=== PATIENT | male | born 1935 | race Caucasian/White ===

== ENCOUNTER → 2017-12-29 | Outpatient (CLI) | payer MEDICARE, OTHER ==
[~2017-12-29] MED LIST: ACETAMINOPHEN325 M1 PO; ACTONEL PO; ASACOL HD800 MG PO; ASPIRIN EC81 M1 PO; ASPIRIN325 PO; BACTRIM DS TAB1 EACH PO; CALCIUM 600 +1 EA11 PO; CALCIUM 600 +1 EAC5; CENTRUM TABLET1 EACH; CYMBALTA30 MG PO; DIFLUCAN150 MG PO; FUROSEMIDE 40 M40 M1 PO; IMURAN 50MG TAB50 M1 PO; KLOR-CON 10 ER10 MEQ PO; KLOR-CON 1010 MEQ PO; LASIX 20 MG TAB20 MG PO; LISINOPRIL2.5 MG; LISINOPRIL2.5 MG PO; MECLIZINE HCL25 M1 PO; NITROGLYCERIN0.4 MG SUBLING; OMEPRAZOLE20 M2 PO; PRILOSEC 20 MG20 MG PO; PROZAC 10 MG CA10 M1; PROZAC 10 MG CA10 MG PO; SIMCOR 500-401 EACH; SIMVASTATIN40 MG PO; TOPROL XL25 MG PO; ZOCOR40 MG PO
[2017-12-29 14:58] LABS: ALBUMIN 3.5 g/dL (3.4-5.0); ALKALINE PHOSPHATASE 56 U/L (46-116); CHOLESTEROL 111 mg/dL (<200); DIRECT BILIRUBIN 0.2 mg/dL (<0.1-0.3); HDL CHOLESTEROL 36 mg/dL (>40); LDL CHOLESTEROL 60 mg/dL (<100); SGOT 18 U/L (15-37); SGPT 18 U/L (30-65); TC:HDL 3.1 Ratio (Not establshd); TOTAL BILIRUBIN 0.6 mg/dL (<0.1-1.0); TOTAL PROTEIN 6.7 g/dL (6.4-8.2); TRIGLYCERIDE 76 mg/dL (<150); VLDL 15 mg/dL (<40)
[2017-12-29 14:59] LABS: SERUM ASSESSMENT Clear
== END ==
LOC: M.LAB 14:20
PROVIDERS: Internal Medicine
DX: E78.2 Mixed hyperlipidemia (principal); I25.10 Atherosclerotic heart disease of native coronary artery without angina pectoris

== ENCOUNTER → 2018-05-19 | Outpatient (CLI) | payer MEDICARE, OTHER | LOC: M.LAB 04:45 | DX: Z01.812 Encounter for preprocedural laboratory examination (principal); E78.2 Mixed hyperlipidemia; I25.10 Atherosclerotic heart disease of native coronary artery without angina pectoris ==

== ENCOUNTER 2018-09-14 13:42 | Emergency (ER) | payer MEDICARE, OTHER ==
[~2018-09-14] VITALS: Ht 172.7 cm; Wt 81.7 kg
[2018-09-14 16:04] LABS: ABSOLUTE EOSINOPHILS 0.2 thou/uL (0.0-0.7); ABSOLUTE LYMPHOCYTES 0.6 thou/uL (0.8-5.3); ABSOLUTE MONOCYTES 0.4 thou/uL (0.0-1.2); ABSOLUTE NEUTROPHILS 3.3 thou/uL (1.6-8.1); BASOPHILS 0.6 %; EOSINOPHILS 3.9 %; HEMATOCRIT 38.3 % (42.0-52.0); HEMOGLOBIN 12.9 gm/dL (14.0-18.0); LYMPHOCYTES 13.3 %; MCH 34.4 pg (26.0-34.0); MCHC 33.8 g/dL (28.0-37.0); MCV 101.7 fL (80.0-100.0); MONOCYTES 9.7 %; MPV 8.9 fl. (7.2-11.1); NUCLEATED RBCS 0 /100WBC; PLATELET COUNT* 166 thou/uL (150-400); POLYS 72.5 %; RBC 3.77 mil/uL (4.50-6.00); RDW-CV 14.8 % (10.5-14.5); WBC 4.6 thou/uL (4.0-11.0)
[2018-09-14 16:08] LABS: CREATININE 1.1 mg/dL (0.6-1.3); POTASSIUM 4.1 mmol/L (3.5-5.1)
[2018-09-14 16:13] LABS: ALBUMIN 3.7 g/dL (3.4-5.0); TOTAL BILIRUBIN 0.4 mg/dL (<0.1-1.0); TOTAL PROTEIN 6.7 g/dL (6.4-8.2)
[2018-09-14 17:28] VITALS: BP 145/60
== END 2018-09-14 17:29 | disposition home or self-care (01) ==
LOC: M.ERS 13:42
PROVIDERS: Emergency Medicine Emergency Medical Services
DX: K40.90 Unilateral inguinal hernia, without obstruction or gangrene, not specified as recurrent (principal); F32.9 Major depressive disorder, single episode, unspecified; E78.00 Pure hypercholesterolemia, unspecified; Z98.890 Other specified postprocedural states; Z95.1 Presence of aortocoronary bypass graft

== ENCOUNTER 2019-01-05 08:06 | Observation (INO) | payer MEDICARE, OTHER ==
[2019-01-05] VITALS (14 sets, daily range): BP systolic 100–155; BP diastolic 42–80
[~2019-01-05] VITALS: Ht 152.4 cm; Wt 83.9 kg
--- NOTE | ~2019-01-05 | D ---
[address] [address] DISCHARGE SUMMARY Name: NOVAKELISE WALKER Room: [address] Adry Monsivais#: [id number] Admission: 01/05/19 Attend Phys: Nick Ch MD, Discharge: 01/06/19 Date of : 34 Report #: [id number] THIS REPORT FOR: //name// CC: Dickson Skinner DATE OF SERVICE: 01/06/2019 FINAL DISCHARGE DIAGNOSES: 1. Unstable angina. 2. Coronary artery disease. 3. Status post remote coronary artery bypass grafting. 4. Status post percutaneous coronary interventions to the circumflex on 01/05/2019. 5. Hypertension. 6. Mixed hyperlipoproteinemia. 7. History of carotid endarterectomy. PROCEDURES: 01/05/2019 - left heart catheterization, left ventriculography, selective coronary arteriography, aortocoronary saphenous vein bypass graft study, PRESTON graft study and percutaneous coronary intervention to [place] circumflex. The patient is a very pleasant and active 83-year-old male with a history of remote coronary artery bypass grafting approximately 2008. He presented on the a.m. of 01/05/2019 after 30 minutes of chest discomfort, which he describes as heaviness, which responded to two sublingual nitroglycerin and four chewed baby aspirin. EKG and enzymes were unremarkable in the ER. Given the clinical history and known coronary artery disease with risk factors of hyperlipidemia and hypertension, I elected to proceed with cardiac catheterization, which was undertaken on 01/05/2019. That study revealed total occlusion of the proximal LAD and proximal right coronary artery. There was 80% tubular narrowing of the proximal-mid circumflex. There was a widely patent PRESTON graft to a diagonal LAD and LAD with two anastomoses and a widely patent vein graft to distal right coronary artery. Given the aforementioned clinical data and the above described anatomy, I elected to proceed with percutaneous coronary intervention, deploying one drug-eluting stent in the proximal - mid circumflex with a 10% residual narrowing following stent deployment and CAITLYN 3 flow of the distal vessel. The troponin anmol inconsequentially to 0.31. Additional lab revealed a sodium of 141, potassium 3.9, BUN 21, down from 23, creatinine 1.1, glucose 220 mg percent. White blood cell count 5200, hemoglobin 11.6, hematocrit 33.1, [place] [address] DISCHARGE SUMMARY Name: ELISE NOVAK Room: [address]#: [id number] Admission: 01/05/19 Attend Phys: Nick Ch MD, Discharge: 01/06/19 Date of : 34 Report #: [id number] platelets 139,000. He ambulated in the hallways without difficulty. I instituted therapy with Brilinta, but he noted marked dyspnea and a number of other complaints, which he clearly attributed to that and we changed from Brilinta to Plavix. He will be discharged with a loading dose of 600 mg given. DISCHARGE MEDICATIONS: He was discharged to home on the following medications: Aspirin 81 mg daily, Imuran 50 mg b.i.d., calcium carbonate/vitamin D3 one tablet b.i.d., fluoxetine or Prozac 10 mg daily, L-thyroxine 100 mcg daily, Asacol or mesalamine 2400 mg daily, omeprazole 20 mg daily, simvastatin 40 mg at bedtime, hydrocodone/acetaminophen 1 tablet every 4 hours as needed for musculoskeletal discomfort, p.r.n. sublingual nitroglycerin, and Plavix 75 mg daily with a 600 mg loading dose given pre-discharge. He is scheduled to return to see our nurse practitioner, Blessing Araiza on 01/18/2019 at 11:30 at the [facility]. By: 1029 [id number] Ch MD, FACC /nt
[~2019-01-05 08:06] MED LIST changes: +NORCO 5-325 TA1 EACH PO; +SYNTHROID100 MC1 PO
[2019-01-05 08:34] LABS: ABSOLUTE EOSINOPHILS 0.2 thou/uL (0.0-0.7); ABSOLUTE LYMPHOCYTES 0.5 thou/uL (0.8-5.3); ABSOLUTE MONOCYTES 0.4 thou/uL (0.0-1.2); ABSOLUTE NEUTROPHILS 3.7 thou/uL (1.6-8.1); BASOPHILS 0.6 %; EOSINOPHILS 3.5 %; HEMATOCRIT 36.6 % (42.0-52.0); HEMOGLOBIN 12.3 gm/dL (14.0-18.0); LYMPHOCYTES 10.8 %; MCH 33.7 pg (26.0-34.0); MCHC 33.6 g/dL (28.0-37.0); MPV 8.5 fl. (7.2-11.1); NUCLEATED RBCS 0 /100WBC; PLATELET COUNT* 167 thou/uL (150-400); POLYS 77.1 %; RBC 3.66 mil/uL (4.50-6.00); RDW-CV 14.3 % (10.5-14.5); WBC 4.8 thou/uL (4.0-11.0)
[2019-01-05 08:42] LABS: INR 1.1; PROTIME 10.8 Seconds (9.20-11.50)
[2019-01-05 08:47] LABS: ANION GAP 6 mmol/L (7-16); BUN 23 mg/dL (7-18); CALCIUM 8.1 mg/dL (8.5-10.1); CHLORIDE 109 mmol/L (98-107); CO2 29 mmol/L (21-32); CREATININE 1.1 mg/dL (0.6-1.3); GLUCOSE 113 mg/dL (70-99); POTASSIUM 4.1 mmol/L (3.5-5.1); SODIUM 144 mmol/L (136-145); TROPONIN-I LEVEL <0.06 ng/mL (<0.06)
[2019-01-05 08:48] LABS: ALBUMIN 3.1 g/dL (3.4-5.0); ALKALINE PHOSPHATASE 45 U/L (46-116); LIPASE 399 U/L (73-393); NT-PRO BRAIN NAT PEPTIDE 627 pg/mL (<300); SGOT 20 U/L (15-37); SGPT 13 U/L (30-65); TOTAL BILIRUBIN 0.7 mg/dL (<0.1-1.0); TOTAL PROTEIN 5.9 g/dL (6.4-8.2)
--- NOTE | 2019-01-05 17:23 | NUR ---
PT ADMITTED ON TELE FLOOR AT 1530 REPORT RECEIVED FROM CARDIAC CATH NURSE. PT IS AOX4 SBRADY 1ST AV BLOCK ON NIGHTCLUB MANAGER . SEE CHART. IV FLUID INFUSING AT 100 PER HOUR. EKG PERFORMED BY BOAT HAND AT BEDSIDE. VSS. VS BEING MONITORED Q15 MIN PER POST CATH PROTOCOL. R GROIN SITE IS INTACT. NO BLEEDING. ON BEDREST UNTIL 8PM. PT SAYS HE IS SOB. O2 SATURATION IS 99% ON RA. PT MIGHT BE FEELING SOB DUE TO EFFIENT INTAKE IN THE ER. WILL COMMUNICATE TO RADIOLOGY SERVICES MANAGER. WILL CONTINUE TO MONITOR PT
--- NOTE | 2019-01-05 18:40 | NUR ---
pt family brought medication list. med list in chart
[2019-01-06] VITALS: BP 116/53
[2019-01-06 02:00] VITALS: BP 124/63
--- NOTE | 2019-01-06 05:06 | NUR ---
PATIENT PROGRESSING TOWARDS GOALS: VSS. RIGHT GROIN REMAINS SOFT AND NONTENDER, DRESSING C/D/I. PATIENT C/O SHORTNESS OF AIR, O2 SATS >92%. PLACED ON 2L O2 NC FOR COMFORT WITH RELIEF. PATIENT AMBULATED HALLWAYS WITH NURSING STAFF, NO COMPLICATIONS. PATIENT ANTICIPATING DISCHARGE TODAY. CALL LIGHT WITHIN REACH
[2019-01-06 05:12] LABS: HEMATOCRIT 33.1 % (42.0-52.0); HEMOGLOBIN 11.6 gm/dL (14.0-18.0); MCH 34.8 pg (26.0-34.0); MCHC 34.9 g/dL (28.0-37.0); MCV 99.5 fL (80.0-100.0); MPV 8.8 fl. (7.2-11.1); RBC 3.32 mil/uL (4.50-6.00); RDW-CV 14.7 % (10.5-14.5); WBC 5.2 thou/uL (4.0-11.0)
[2019-01-06 05:20] LABS: ALBUMIN 2.7 g/dL (3.4-5.0); ALKALINE PHOSPHATASE 40 U/L (46-116); ANION GAP 5 mmol/L (7-16); BUN 21 mg/dL (7-18); CALCIUM 7.8 mg/dL (8.5-10.1); CHLORIDE 108 mmol/L (98-107); CHOLESTEROL 122 mg/dL (<200); CO2 28 mmol/L (21-32); CREATININE 1.1 mg/dL (0.6-1.3); GLUCOSE 120 mg/dL (70-99); HDL CHOLESTEROL 39 mg/dL (>40); LDL CHOLESTEROL 65 mg/dL (<100); POTASSIUM 3.9 mmol/L (3.5-5.1); SGOT 16 U/L (15-37); SGPT 13 U/L (30-65); SODIUM 141 mmol/L (136-145); TC:HDL 3.1 Ratio (Not establshd); TOTAL BILIRUBIN 0.8 mg/dL (<0.1-1.0); TOTAL PROTEIN 5.4 g/dL (6.4-8.2); TRIGLYCERIDE 90 mg/dL (<150); TROPONIN-I LEVEL 0.31 ng/mL (<0.06); VLDL 18 mg/dL (<40)
[2019-01-06 05:28] LABS: SERUM ASSESSMENT CLEAR
[2019-01-06 08:00] VITALS: BP 137/61
[2019-01-06 09:25] VITALS: BP 100/54
[2019-01-06 10:49] VITALS: BP 100/54
--- NOTE | 2019-01-06 11:14 | CARD ---
[address] [address] CARDIAC CATH REPORT Name: ELISE NOVAK Room: [address] Adry MSamir#: [id number] Admission: 01/05/19 Attend Phys: Nick Ch MD, Discharge: Date of : 34 Report #: [id number] THIS REPORT FOR: //name// APPROVED REPORT Study performed: 01/05/2019 12:32:11 Patient Details The patient is a 83 year-old male Event Personnel Nick Ch Quality Assurance Monitor, Carmen Arzate RN RN, Kashif AlexanderIS Monitor, Jamie Logan (R) Scrub Procedures Performed Left heart catheterization left ventriculography selective coronary arteriography aortocoronary saphenous vein bypass graft study PRESTON graft study and percutaneous coronary intervention to the [place] circumflex Indication Unstable angina Risk Factors Hypercholesterolemia, Hypertension Previous Procedures/Diagnoses Previous CABG Admission/Lab Medications/Medications given during procedure Aspirin, Platelet Aff. Inhib., Angiomax bolus and infusion Procedure Narrative The patient was brought electively to the Cardiac Catheterization Laboratory and was prepped and draped in a sterile manner. The right femoral was infiltrated with 2% Lidocaine subcutaneous anesthesia. A [place] 5fr sheath was inserted into the right femoral artery. Coronary angiography was performed using coronary diagnostic catheters. The right coronary system was accessed and visualized with a JR4 5fr catheter. The left coronary system was accessed and visualized with a JL4 5fr catheter. The left ventricle was accessed and visualized with a PC: [place] 5fr catheter. Left ventricular/Aortic Valve gradient assessed via catheter pullback. Left ventriculogram was performed in DAVISON projection. Pre-demployment femoral angiogram was performed . [place] [address] CARDIAC CATH REPORT Name: NOVAKELISE WALKER Room: [address]#: [id number] Admission: 01/05/19 Attend Phys: Nick Ch MD, Discharge: Date of : 34 Report #: [id number] well and there were no complications associated with the procedure. There was no hematoma. graft the RCA visualized with AR MOD IM visulized with IM For intervention sheath exchanged for a 6fr Intraoperative Conscious Sedation Sedation start time: 1319 Case end Time: 1428 Fentanyl 25 mcg Versed 2 mg Fluoro Time: 16.2 minutes Dose: DAP 368343 cGycm2 1800 mGy Contrast Type and Amount: Visipaque 340 ml Diagnostic Cath Left Main 0 Percent narrowing LAD 90% proximal stenosis with 100% occlusion after the first septal boatswains mate Circumflex 30% ostial narrowing with 80% proximal and 75% mid circumflex stenosis Right Coronary 100% proximal occlusion Left Ventriculography The left ventricle is normal in size with normal contractility. The left ventricular ejection fraction is estimated to be 60%. Left ventricular wall motion abnormalities are not present. There is no mitral insufficiency. Hemodynamics The aortic pressure is 148/55 mmHg with a mean of 91 mmHg. The left ventricular pressure is 154/1 mmHg with a mean of mmHg. The left ventricular end diastolic pressure is 22 mmHg. There was no gradient across the aortic valve upon pullback. PCI Technique Lesion Anticoagulation was achieved with Angiomax. Patient was preloaded with Angiomax IV 13 mg per kg. Percutaneous coronary intervention was performed on the proximalmid circumflex. The lesion stenosis prior to intervention was 80% with CAITLYN 3 flow. A 6F XB LAD 3.5 Guide Catheter was used to engage the ostium. A IG: BMW 190cm Interventional Guidewire was used to cross the lesion. BALLOON DILATION A Balloon catheter Trek RX 2.25 X 12 was inserted and inflated up to 10.00atm for 10seconds. Additional Inflation: 12.00atm for 10seconds. Additional Inflation: 14.00atm for 11seconds. [place] [address] CARDIAC CATH REPORT Name: ELISE NOVAK Room: [address] M.RMana#: [id number] Admission: 01/05/19 Attend Phys: Nick Ch MD, Discharge: Date of : 34 Report #: [id number] STENT DEPLOYMENT A stent [place] RX Stent 2.0X26mm was inserted and inflated up to 16atm for 17seconds. Additional Inflation: 17atm for 8seconds. POST STENT DEPLOYMENT BALLOON DILATION A Balloon catheter [place] Trek RX 2.25x12 was inserted and inflated up to 14atm for 8seconds. Additional Inflation: 15atm for 8seconds. Additional Inflation: 18atm for 9seconds. 20 nadeem for 7 sec 16 nadeem for 7 sec Final angiography reveals 10 % stenosis with CAITLYN 3 flow. PCI Technique Lesion 2 Percutaneous Coronary Intervention was performed on the mid circumflex artery segment. Conclusion #1 severe coronary artery disease characterized by the following: A 90% proximal LAD narrowing with 100% mid vessel occlusion B 30% ostial circumflex narrowing with tandem 80 and 70% proximalmid vessel stenosis C total occlusion of the dominant right coronary artery proximally #2 graft study characterized by the following: A widely patent PRESTON graft to the first diagonal and LAD without narrowing B widely patent saphenous vein graft to the distal right coronary artery #3 mild systemic systolic hypertension with moderate elevation of left ventricular end-diastolic pressure at rest #5 successful percutaneous coronary intervention with deployment of drug-eluting stent at the site of tandem 80 and 75% proximalmid circumflex stenosis with 10% residual narrowing and CAITLYN-3 flow to the distal vessel Recommendations [place] [address] CARDIAC CATH REPORT Name: ELISE NOVAK Room: [address] Adry Monsivais#: [id number] Admission: 01/05/19 Attend Phys: Nick Ch MD, Discharge: Date of : 34 Report #: [id number] Aggressive Medical Therapy Medications Administered Aspirin (any) Ticagrelor Diagnostic Cath Approved by: Nick Ch MD Date/Time: 01/06/2019 11:13:10 <ELECTRONICALLY SIGNED> By: Nick Ch MD, [facility] 01/06/19 1114 1114 [id number] Ch MD, FACC /INF
[2019-01-06] MEDS ORDERED: PLAVIX 75 MG TA75 M1 PO (11:22)
--- NOTE | 2019-01-06 11:33 | CON ---
[address] [address] CONSULTATION Name: ELISE NOVAK Room: [address] Adry M.RMana#: [id number] Admission: 01/05/19 Attend Phys: Nick Ch MD, Discharge: Date of : 34 Report #: [id number] THIS REPORT FOR: //name// CC: Dickson Skinner DATE OF SERVICE: 01/05/2019 The patient going to telemetry at another room number on 01/05/2019. HISTORY OF PRESENT ILLNESS: The patient is a very pleasant 83-year-old male with coronary artery disease status post coronary artery bypass grafting in approximately 2008 when he had a triple vessel bypass undertaken at [facility]. He awakened this morning with central chest heaviness that lasted for at least a half an hour with some response to nitrates and finally abating after chewing 4 baby aspirin en route to the Emergency Room. EKG there revealed no evidence for acute myocardial injury or ischemia. The pain was different from that he has experienced in the past and different from prior reflux esophagitis pain. The patient does have risk factors for coronary artery disease including hypertension and mixed hyperlipidemia. He also has mild carotid disease, status post remote carotid endarterectomy. CARDIAC MEDICINES: Have included furosemide 20 mg daily, L-thyroxine 100 mcg daily, metoprolol succinate 25 mg daily, p.r.n. sublingual nitroglycerin, Lasix as noted above, potassium chloride 10 mEq daily, simvastatin 40 mg at bedtime. PAST MEDICAL HISTORY: Remarkable for hypertension, hyperlipidemia, history of prior thyroid cancer, prior remote tobacco use. SOCIAL HISTORY: The patient is . He is no longer a smoker. REVIEW OF SYSTEMS: Remarkable for the following: GENERAL: He notes mild arthritic complaints. PULMONARY: There is a history of remote tobacco use. PHYSICAL EXAMINATION: GENERAL: Reveals a mildly distressed elderly male. VITAL SIGNS: Blood pressure is 140/70, pulse rate is 58, respirations are 18 per minute. NECK: Jugular venous pressure is normal. Carotids are 1-2+. CHEST: Clear. CARDIOVASCULAR: Reveals normal first and second heart [place] [address] CONSULTATION Name: ELISE NOVAK Room: [address]#: [id number] Admission: 01/05/19 Attend Phys: Nick Ch MD, Discharge: Date of : 34 Report #: [id number] gallops. ABDOMEN: Soft and nontender, without masses or organomegaly. EXTREMITIES: Without edema with intact femoral, pedal and radial pulses. Electrocardiogram reveals no acute ischemic changes. IMPRESSION: 1. Chest pain compatible with angina at rest and that is why definition of unstable angina. 2. Coronary artery disease, status post remote coronary artery bypass grafting. 3. Hypertension. 4. Mixed hyperlipoproteinemia. 5. History of carotid endarterectomy. RECOMMENDATIONS: Given the aforementioned clinical scenario with chest pain at rest, remitting after nitrates and aspirin, I would recommend cardiac catheterization to define the magnitude of coronary graft disease and prospects for subsequent therapeutic alteration. Procedure has been discussed with the patient and family. Critical care time is 32 minutes from 02:20 to 02:52 on 01/05/2019. <ELECTRONICALLY SIGNED> By: Nick Ch MD, FACC 01/06/19 1133 1453 [id number] Ch MD, FACC /nt
--- NOTE | 2019-01-06 11:38 | EKG ---
[place] [address] ELECTROCARDIOGRAM REPORT Name: ELISE NOVAK Room: [address] M.R.#: [id number] Admission: 01/05/19 Attend Phys: Nick Ch MD, Discharge: Date of : 34 Report #: [id number] THIS REPORT FOR: //name// [facility] ED Test Date: 2019-01-05 Test Time: 08:07:35 Pat Name: ELISE NOVAK Department: Room: [facility] Gender: Division Head: Mitzi BOSCH : 1935 Requested By: Andrew Ernandez Order Number: [id number] : Nick Ch Measurements Intervals [place] Rate: 45 P: 78 NE: 216 QRS: 16 QRSD: 97 T: 22 QT: 444 QTc: 385 Interpretive Statements Sinus bradycardia Atrial premature complexes Compared to ECG 09/30/2018 06:37:58 Sinus rate has decreased Electronically Signed On 01-06-2019 11:38:11 CDT by Nick Ch [email or web address] <ELECTRONICALLY SIGNED> By: Nick Ch MD, [facility] 01/06/19 1138 0807 0807 Nick Ch MD, [facility] /EPI
--- NOTE | 2019-01-06 11:41 | EKG ---
[place] [address] ELECTROCARDIOGRAM REPORT Name: ELISE NOVAK Room: [address] M.R.#: [id number] Admission: 01/05/19 Attend Phys: Nick Ch MD, Discharge: Date of : 34 Report #: [id number] THIS REPORT FOR: //name// [facility] Test Date: 2019-01-05 Test Time: 16:00:33 Pat Name: ELISE NOVAK Department: Room: [facility] Gender: M Iron Handler: : 1935 Requested By: Nick Ch Order Number: [id number] Jessica MD: Nick Ch Measurements Intervals [place] Rate: 43 P: -37 OR: 136 QRS: 35 QRSD: 105 T: 29 QT: 448 QTc: 379 Interpretive Statements Sinus rhythm Atrial premature complexes Compared to ECG 09/30/2018 06:37:58 No significant changes Electronically Signed On 01-06-2019 11:41:22 CDT by Nick Ch [email or web address] <ELECTRONICALLY SIGNED> By: Nick Ch MD, [facility] 01/06/19 1141 1600 1600 Nick Ch MD, FACC /EPI
--- NOTE | 2019-01-06 11:45 | EKG ---
[place] [address] ELECTROCARDIOGRAM REPORT Name: ELISE NOVAK Room: [address] M.R.#: [id number] Admission: 01/05/19 Attend Phys: Nick Ch MD, Discharge: Date of : 34 Report #: [id number] THIS REPORT FOR: //name// [facility] Test Date: 2019-01-06 Test Time: 07:30:48 Pat Name: ELISE NOVAK Department: Room: [facility] Gender: M Software Systems Analyst: BEN : 1935 Requested By: Nick Ch Order Number: [id number] Jessica MD: Nick Ch Measurements Intervals [place] Rate: 44 P: -12 OK: 159 QRS: 28 QRSD: 100 T: 27 QT: 440 QTc: 377 Interpretive Statements Sinus rhythm Atrial premature complexes Compared to ECG 09/30/2018 06:37:58 No significant changes Electronically Signed On 01-06-2019 11:45:30 CDT by Nick Ch [email or web address] <ELECTRONICALLY SIGNED> By: Nick Ch MD, [facility] 01/06/19 1145 9 9 Nick Ch MD, FACC /EPI
--- NOTE | 2019-01-06 11:51 | NUR ---
ASSUMED PT CARE REPORT RECEIVED FROM NURSE. PT IS AOX4 SBRADY PACS [address] AV BLOCK ON THE IMAGE PROCESSING ENGINEER. PT ON RA SATURATION ABOVE 95%. NO COMPLAINT. DISCHARGE ORDER GIVEN. IV FLUID STOPPED. PLAVIX 600 MG GIVEN ORDERED. DISCHARGE INSTRUCTION GIVEN TO PT WHO STATES UNDERSTANDING. PT LEFT UNIT AT 1150 IN STABLE CONDITION ACCOMPANIED BY DAUGHTER AND VOLUNTEER IN A WHEELCHAIR.
== END 2019-01-06 12:00 | disposition home or self-care (01) ==
LOC: M.CL 08:06 → M.ERS 08:06 → M.TBA-ER 09:52 → M.ERS 09:52 → M.TBA-CV 12:46 → M.CL 13:08 → M.TBA-CV 14:38 → M.2W 15:29
PROVIDERS: Emergency Medicine; Internal Medicine; ADMIT Internal Medicine
DX: I25.110 Atherosclerotic heart disease of native coronary artery with unstable angina pectoris (principal); I10 Essential (primary) hypertension; E78.5 Hyperlipidemia, unspecified; F32.9 Major depressive disorder, single episode, unspecified; K51.90 Ulcerative colitis, unspecified, without complications; K21.0 Gastro-esophageal reflux disease with esophagitis; K22.70 Barrett's esophagus without dysplasia; E03.9 Hypothyroidism, unspecified; Z95.1 Presence of aortocoronary bypass graft; Z98.61 Coronary angioplasty status; Z86.79 Personal history of other diseases of the circulatory system; Z98.890 Other specified postprocedural states; Z90.89 Acquired absence of other organs; Z87.891 Personal history of nicotine dependence

== ENCOUNTER → 2019-03-29 | Outpatient (CLI) | payer MEDICARE, OTHER ==
[~2019-03-29] MED LIST changes: +PLAVIX 75 MG TA75 M1 PO
== END ==
LOC: M.ULTRA 03-28 13:00
DX: I65.23 Occlusion and stenosis of bilateral carotid arteries (principal)

== ENCOUNTER 2019-08-04 14:33 | Emergency (ER) | payer MEDICARE, OTHER ==
[~2019-08-04] VITALS: Ht 172.7 cm; Wt 79.4 kg
[2019-08-04 17:09] VITALS: BP 135/82
== END 2019-08-04 17:10 | disposition home or self-care (01) ==
LOC: M.ERS 14:33
DX: S61.412A Laceration without foreign body of left hand, initial encounter (principal); S00.81XA Abrasion of other part of head, initial encounter; K21.9 Gastro-esophageal reflux disease without esophagitis; E78.00 Pure hypercholesterolemia, unspecified; Z87.891 Personal history of nicotine dependence; Z95.1 Presence of aortocoronary bypass graft; Z98.890 Other specified postprocedural states; W10.8XXA Fall (on) (from) other stairs and steps, initial encounter; Y93.89 Activity, other specified; Y92.89 Other specified places as the place of occurrence of the external cause; Y99.8 Other external cause status

== ENCOUNTER 2019-09-13 19:15 | Emergency (ER) | payer MEDICARE, OTHER ==
[~2019-09-13] VITALS: Ht 172.7 cm; Wt 81.7 kg
[2019-09-13] MEDS ORDERED: AZATHIOPRINE50 MG PO (19:41)
[2019-09-13] MEDS ORDERED: IBU600 MG PO (19:41)
[2019-09-13 19:56] LABS: ABSOLUTE EOSINOPHILS 0.1 thou/uL (0.0-0.7); ABSOLUTE LYMPHOCYTES 0.6 thou/uL (0.8-5.3); ABSOLUTE MONOCYTES 0.4 thou/uL (0.0-1.2); ABSOLUTE NEUTROPHILS 3.7 thou/uL (1.6-8.1); BASOPHILS 0.6 %; EOSINOPHILS 2.9 %; HEMATOCRIT 33.5 % (42.0-52.0); HEMOGLOBIN 11.7 gm/dL (14.0-18.0); LYMPHOCYTES 11.7 %; MCH 34.4 pg (26.0-34.0); MCHC 34.9 g/dL (28.0-37.0); MCV 98.7 fL (80.0-100.0); MONOCYTES 8.8 %; MPV 8.5 fl. (7.2-11.1); NUCLEATED RBCS 0 /100WBC; PLATELET COUNT* 177 thou/uL (150-400); RBC 3.39 mil/uL (4.50-6.00); RDW-CV 14.5 % (10.5-14.5); WBC 4.8 thou/uL (4.0-11.0)
[2019-09-13 20:03] LABS: CALCIUM 8.2 mg/dL (8.5-10.1); CREATININE 1.2 mg/dL (0.6-1.3); POTASSIUM 3.9 mmol/L (3.5-5.1)
[2019-09-13 20:08] LABS: ALBUMIN 3.5 g/dL (3.4-5.0); TOTAL BILIRUBIN 0.3 mg/dL (<0.1-1.0); TOTAL PROTEIN 6.2 g/dL (6.4-8.2)
[2019-09-13 20:44] VITALS: BP 148/80
[2019-10-03] MEDS ORDERED: CALCIUM500 M1 PO (16:21)
[2019-10-03] MEDS ORDERED: EFFIENT10 MG PO (16:22)
[2019-10-03] MEDS ORDERED: NORCO 5-325 TA1 EAC1 PO (16:22)
[2019-10-03] MEDS ORDERED: FUROSEMIDE 20 M20 MG PO (16:23)
[2019-10-03] MEDS ORDERED: IMURAN 50MG TAB50 M1 PO (16:23)
[2019-10-03] MEDS ORDERED: KLOR-CON 1010 MEQ PO (16:24)
[2019-10-03] MEDS ORDERED: SIMVASTATIN40 MG PO (16:25)
[2019-10-09] MEDS ORDERED: ROXICODONE5 M2 PO (13:03)
== END 2019-09-13 20:46 | disposition home or self-care (01) ==
LOC: M.ERS 19:15
PROVIDERS: Physician Assistant
DX: K46.9 Unspecified abdominal hernia without obstruction or gangrene (principal); K21.9 Gastro-esophageal reflux disease without esophagitis; F32.9 Major depressive disorder, single episode, unspecified; Z87.891 Personal history of nicotine dependence; Z90.89 Acquired absence of other organs

== ENCOUNTER → 2019-10-09 | Day surgery (SDC) | payer MEDICARE, OTHER ==
[~2019-10-09] MED LIST changes: +AZATHIOPRINE50 MG PO; +CALCIUM500 M1 PO; +EFFIENT10 MG PO; +FUROSEMIDE 20 M20 MG PO; +IBU600 MG PO; +NORCO 5-325 TA1 EAC1 PO; +ROXICODONE5 M2 PO
--- NOTE | ~2019-10-09 | OP ---
[address] [address] OPERATIVE REPORT Name: KISHOREELISE WALKER Room: [facility].#: [id number] Admission: 10/09/19 Attend Phys: Jacinto Ramires DO Discharge: Date of : 34 Report #: [id number] THIS REPORT FOR: //name// CC: Jacinto Basurto DICTATED BY: Yury Brooks DO DATE OF SERVICE: 10/09/2019 PRIMARY CARE PHYSICIAN: Tiarra Basurto. REFERRING PHYSICIAN: Tiarra Basurto. PREOPERATIVE DIAGNOSIS: Incisional hernia. POSTOPERATIVE DIAGNOSIS: Incisional hernia. PRIMARY SURGEON: Jacinto Ramires DO CO-SURGEON: Yury Brooks DO, PGY3 SERICULTURIST: Reina Hayes MS3 OPERATION PERFORMED: Open incisional hernia repair with mesh. ANESTHESIA TYPE: General and local. ESTIMATED BLOOD LOSS: 20 mL. SPECIMEN REMOVED: Hernia sac. COMPLICATIONS: None. FINDINGS: A reducible incisional hernia just superior to the umbilicus. Defect was 2 cm. INDICATIONS FOR PROCEDURE: The patient is a pleasant 84-year-old male who presented to the office with chief complaint of hernia at a previous abdominal incision site. The patient was unable to recall what abdominal surgery he had. He had first noticed a bulge about a month ago that was easily reducible, never stuck out. No changes to overlying skin. No changes in bowel habits. Denied fevers, chills, nausea, vomiting. I recommended open incisional hernia repair with mesh due to the patient's severe cardiac history. Full discussion of [facility] [address] [place] [address] OPERATIVE REPORT Name: ELISE NOVAK Room: [facility].#: [id number] Admission: 10/09/19 Attend Phys: Jacinto Ramires, DO Discharge: Date of : 34 Report #: [id number] procedure, alternatives, risks, possible complications discussed include, but are not limited to bleeding, infection, postoperative pain, scarring, hernia recurrence, injury to other underlying abdominal organs mainly bowel, need for further surgery, mesh complications, need for mesh removal, and anesthesia risks. The patient understands risks and agreed to proceed with surgery. OPERATIVE TECHNIQUE: The patient was again seen and examined in preoperative holding. Fully informed written consent was obtained. Preoperative antibiotics, 2 g Ancef were given. The patient was subsequently transferred to the operating room suite and placed on the operating table in supine position. At this time, Anesthesia induced general anesthesia via endotracheal intubation. This was successful. SCDs were placed to bilateral lower extremity calves. Grounding pad was placed to the right lateral thigh. Arms were placed out on arm boards. All extremities and joints were padded and protected. Safety straps were placed across the patient's thighs. Cyndie Hugger was placed across the patient's chest. The patient was prepped and draped using standard sterile fashion. Time-out was performed prior to onset of procedure. We began by making a vertical incision over the previous superior umbilical incisional scar. We then dissected down through dermal and subcutaneous layers using electrocautery until the hernia sac was encountered. This was grasped gently with a hemostat, elevated, and the hernia sac was dissected out circumferentially to the fascial edges. The hernia sac was entered and transected circumferentially around the fascial defect. This was sent off to the back table to be sent for permanent pathology. A finger sweep was performed to the abdomen. There were no other hernias noted. No injury to underlying bowel. Defect was noted to be 2 cm. A 6.[address] hernia mesh was brought on to the back table and placed into the abdomen as an underlay mesh in the abdomen. This was closed in a vertical fashion with 0 interrupted Prolenes starting at the superior apex with mesh incorporation and closure of the fascial defect. Once the fascia and mesh were sewn into place, it was noted to be good repair, tension free. Subcutaneous and deep dermal layers were then closed using an interrupted 3-0 Vicryl and the skin was closed using a running subcuticular 4-0 Monocryl. A 30 mL 0.5% Marcaine was used for local anesthetic. Abdomen was cleansed using wet and dry lap. Sterile dressing was applied. Mastisol, Steri-Strips, Tegaderm, and abdominal binder were placed in the operating room. The patient tolerated the procedure well and was extubated in the OR, transferred to PACU in stable condition after brief recovery from anesthesia. PLAN: Discharged home. FOLLOWUP: Follow up in the office with Dr. Ramires in 1 week. By: [id number] Kirill Ramires DO /nt
[2019-10-09 10:23] LABS: HEMATOCRIT 35.4 % (42.0-52.0); HEMOGLOBIN 12.3 gm/dL (14.0-18.0); MCH 33.7 pg (26.0-34.0); MCHC 34.6 g/dL (28.0-37.0); MCV 97.2 fL (80.0-100.0); MPV 8.1 fl. (7.2-11.1); RBC 3.64 mil/uL (4.50-6.00); RDW-CV 14.2 % (10.5-14.5); WBC 5.1 thou/uL (4.0-11.0)
[2019-10-09 10:28] LABS: CALCIUM 7.7 mg/dL (8.5-10.1); CREATININE 1.3 mg/dL (0.6-1.3); POTASSIUM 4.3 mmol/L (3.5-5.1)
[2019-10-09 10:33] LABS: ALBUMIN 3.3 g/dL (3.4-5.0); TOTAL BILIRUBIN 0.6 mg/dL (<0.1-1.0); TOTAL PROTEIN 5.9 g/dL (6.4-8.2)
--- NOTE | 2019-10-09 10:46 | EKG ---
[place] [address] ELECTROCARDIOGRAM REPORT Name: ELISE NOVAK Room: [facility].#: [id number] Admission: 10/09/19 Attend Phys: Jacinto Ramires DO Discharge: Date of : 34 Report #: [id number] THIS REPORT FOR: //name// [facility] Test Date: 2019-10-09 Test Time: 09:30:05 Pat Name: ELISE NOVAK Department: Room: Gender: M Driveway Attendant: : 1935 Requested By: Jacinto Ramires Order Number: [id number] Reading MD: Dickson Singh Measurements Intervals [place] Rate: 68 P: 49 MO: 210 QRS: 48 QRSD: 104 T: 32 QT: 389 QTc: 414 Interpretive Statements Sinus rhythm with pac's Compared to ECG 01/06/2019 07:30:48 rate increased Electronically Signed On 10-09-2019 10:45:52 PEER FINANCIAL COUNSELOR by Dickson Singh [email or web address] <ELECTRONICALLY SIGNED> By: Dickson Singh MD, [facility] 10/09/19 1045 0930 9 Dickson Singh MD, FACC /EPI
--- NOTE | 2019-10-10 16:06 | PATH ---
[address] [address] PATHOLOGY RPT PROCEDURE Name: ALEJANDRO NOVAK Room: [facility]..#: [id number] Admission: 10/09/19 Date of : 33 Discharge: Report #: [id number] Path Case #: [id number] [facility] Accession Number: [id number] . 01 Material submitted: . hernia - HERNIA SAC . 01 Clinical history: . Incisional hernia . 02 Diagnosis: Hernia sac: - Benign mesothelial-lined fibromembranous/fibrofatty tissue with fibroplasia and mild chronic inflammation. . (CHRISTEL:mml; 10/10/2019) [facility] 10/10/2019 [facility]2 Local . 02 Electronically signed: . Jw Erickson MD, Pathologist NPI- [id number] . 01 Gross description: . The specimen is received in formalin, labeled "Alejandro Novak, hernia sac". Received is a segment of fibromembranous tissue with attached fibroadipose tissue measuring 8.2 x 2.0 x 1.4 cm in greatest dimensions. No distinct nodules or lesions are noted grossly. The specimen is submitted representatively in cassette A1. (CAA; 10/09/2019) QAC/QAC 10/10/2019 1311 Local . 02 Pathologist provided ICD-10: K43.2 . 02 CPT . [id number] Specimen Comment: A courtesy copy of this report has been sent to [phone], [phone] Specimen Comment: [phone], Specimen Comment: Report sent to ,DR RICHARDS / DR RIOS Performed at: [address], [place], [place] [id number] MD Ron Lewis MD Phone: [phone] Performed at: [address] [address] [address], [place], [place] [id number] MD Jw Erickson MD Phone: [phone]
== END | disposition home or self-care (01) ==
LOC: M.SUR 06:16
PROVIDERS: Surgery
DX: K43.2 Incisional hernia without obstruction or gangrene (principal); I10 Essential (primary) hypertension; I25.10 Atherosclerotic heart disease of native coronary artery without angina pectoris; E78.2 Mixed hyperlipidemia; Z98.890 Other specified postprocedural states; Z79.899 Other long term (current) drug therapy; Z79.82 Long term (current) use of aspirin; Z95.1 Presence of aortocoronary bypass graft

== ENCOUNTER 2019-12-22 18:13 | Inpatient (IN) | payer MEDICARE, OTHER ==
[~2019-12-22] VITALS: Ht 167.6 cm; Wt 74.8 kg
[~2019-12-22 18:13] MED LIST changes: -PRILOSEC 20 MG20 MG PO; +PRILOSEC OTC20 MG PO
[2019-12-22 18:14] VITALS: BP 123/63
[2019-12-22 18:31] LABS: ABSOLUTE EOSINOPHILS 0.1 thou/uL (0.0-0.7); ABSOLUTE LYMPHOCYTES 0.7 thou/uL (0.8-5.3); ABSOLUTE MONOCYTES 0.4 thou/uL (0.0-1.2); ABSOLUTE NEUTROPHILS 3.3 thou/uL (1.6-8.1); BASOPHILS 0.6 %; EOSINOPHILS 2.4 %; HEMATOCRIT 33.4 % (42.0-52.0); HEMOGLOBIN 11.6 gm/dL (14.0-18.0); LYMPHOCYTES 14.5 %; MCH 33.6 pg (26.0-34.0); MCHC 34.7 g/dL (28.0-37.0); MCV 96.8 fL (80.0-100.0); MONOCYTES 9.5 %; MPV 8.2 fl. (7.2-11.1); NUCLEATED RBCS 0 /100WBC; PLATELET COUNT* 170 thou/uL (150-400); RBC 3.45 mil/uL (4.50-6.00); RDW-CV 14.5 % (10.5-14.5); WBC 4.6 thou/uL (4.0-11.0)
[2019-12-22 18:39] LABS: CALCIUM 7.7 mg/dL (8.5-10.1); CREATININE 1.1 mg/dL (0.6-1.3); POTASSIUM 4.6 mmol/L (3.5-5.1)
[2019-12-22 18:43] LABS: APTT 27.6 Seconds (25.0-31.3); PROTIME 10.7 Seconds (9.20-11.50)
[2019-12-22 18:53] LABS: ALBUMIN 3.1 g/dL (3.4-5.0); CK-MB MASS 2.5 ng/mL (<0.5-3.6); MAGNESIUM 2.1 mg/dL (1.8-2.4); TOTAL BILIRUBIN 0.4 mg/dL (<0.1-1.0); TOTAL PROTEIN 5.8 g/dL (6.4-8.2)
[2019-12-22 19:59] VITALS: BP 106/69
[2019-12-22 20:30] VITALS: BP 120/91
[2019-12-22 23:39] VITALS: BP 114/51
[2019-12-23 01:32] LABS: ABSOLUTE EOSINOPHILS 0.1 thou/uL (0.0-0.7); ABSOLUTE LYMPHOCYTES 0.7 thou/uL (0.8-5.3); ABSOLUTE MONOCYTES 0.4 thou/uL (0.0-1.2); ABSOLUTE NEUTROPHILS 2.6 thou/uL (1.6-8.1); BASOPHILS 0.7 %; EOSINOPHILS 3.3 %; HEMATOCRIT 32.2 % (42.0-52.0); HEMOGLOBIN 11.2 gm/dL (14.0-18.0); LYMPHOCYTES 17.2 %; MCH 33.6 pg (26.0-34.0); MCHC 34.9 g/dL (28.0-37.0); MCV 96.2 fL (80.0-100.0); NUCLEATED RBCS 0 /100WBC; PLATELET COUNT* 151 thou/uL (150-400); POLYS 67.8 %; RBC 3.34 mil/uL (4.50-6.00); RDW-CV 14.5 % (10.5-14.5); WBC 3.8 thou/uL (4.0-11.0)
[2019-12-23 01:54] LABS: CALCIUM 8.1 mg/dL (8.5-10.1); CREATININE 1.1 mg/dL (0.6-1.3); POTASSIUM 4.3 mmol/L (3.5-5.1)
[2019-12-23 04:08] VITALS: BP 132/58
--- NOTE | 2019-12-23 06:59 | NUR ---
PT TO FLOOR APPROX 0800 AND ASSUMED CARE. ASSESMENT COMPLETED CHARTED. SEE MAR. SEE CHARTING. HOURLY ROUNDING FOR SAFETY.
[2019-12-23 07:45] VITALS: BP 137/64
[2019-12-23 10:50] VITALS: BP 137/64
[2019-12-23 11:55] VITALS: BP 137/64
--- NOTE | 2019-12-23 11:56 | NUR ---
PT A&OX4 VSS. PT DENIES PAIN OR SOB. PT SINUS ON MONITOR. PT UP AD [facility], GAIT STEADY. IV TO LAC DC'D PRIOR TO LEAVING UNIT. PT NPO AT START OF SHIFT, CLEARED TO EAT BY CARDIO. PT PROVIDED BOX LUNCH WITH AM MEDS. PT UP TO RECLINER W/O ASSIST, GAIT STEADY. PT DRESSED INDEPENDENTLY, AND WAITING FOR FAMILY TO PICK HIM UP. PT STATES UNDERSTANDING OF DC INSTRUCTIONS AT TIME OF PT EDUCATION. PT ESCORTED TO EXIT BY NURSING STAFF.
--- NOTE | 2019-12-23 12:59 | EKG ---
[place] [address] ELECTROCARDIOGRAM REPORT Name: ELISE NOVAK Room: [address] IN M.R.#: [id number] Admission: 12/22/19 Attend Phys: Bert Montoya, Discharge: 12/23/19 Date of : 33 Date of Service: 12/22/19 1816 Report #: [id number] THIS REPORT FOR: //name// [facility] ED Test Date: 2019-12-22 Test Time: 18:16:41 Pat Name: ELISE NOVAK Department: Room: [facility] Gender: M Dye Box Operator: : 1935 Requested By: Erasto Sewell Order Number: [id number] MD: Marlo Mcarthur Measurements Intervals [place] Rate: 66 P: 39 [place]: 205 QRS: 31 QRSD: 101 T: 43 QT: 421 QTc: 442 Interpretive Statements Sinus rhythm Atrial premature complexes Compared to ECG 10/09/2019 09:30:05 Atrial premature complex(es) now present Electronically Signed On 12-23-2019 12:58:05 CDT by Marlo Mcarthur [email or web address] <ELECTRONICALLY SIGNED> By: Marlo Mcarthur MD, FACC 12/23/19 1258 1816 1816 Marlo Mcarthur MD, FAC /EPI
--- NOTE | 2019-12-25 12:49 | CON ---
[address] [address] CONSULTATION Name: NOVAKELISE WALKER Room: [address] IN M.R.#: [id number] Admission: 12/22/19 Attend Phys: Bert Montoya MD Discharge: 12/23/19 Date of : 34 Report #: [id number] THIS REPORT FOR: //name// cc: Nick Skinner John E. DO THIS REPORT FOR: //name// CC: Bert Ch MD [facility] Nick Skinner DO INDICATION: Left arm numbness and tingling. HISTORY OF PRESENT ILLNESS: The patient is a very pleasant 84-year-old gentleman with history of coronary artery disease. He had coronary artery bypass grafting remotely. In 2008, he had a PRESTON graft to the LAD, saphenous vein graft to the distal right coronary artery. In December of 2018, he had percutaneous coronary intervention and drug-eluting stent placed to the mid circumflex coronary artery. He is known to have preserved left ventricular systolic function. Yesterday afternoon, he developed left arm numbness and tingling that started in the wrist area and gradually migrated to the shoulder region. This numbness and tingling persisted for approximately 3-4 hours. At some point, he decided to alerted EMS. He took 2 nitroglycerins at home without relief of symptoms. While being transported in the ambulance to the Emergency Room, he had a sublingual spray of nitroglycerin. The discomfort gradually resolved. Through this episode, he denied any chest pain. He had no diaphoresis, shortness of breath, nausea or vomiting. He had no other associated symptoms. In hospital, the patient has ruled out for myocardial infarction with serial enzymes. His initial EKG showed sinus rhythm without any acute ST or T-wave abnormalities. The patient has remained stable since admission to the hospital. PAST MEDICAL HISTORY: 1. Coronary artery disease with coronary artery bypass grafting in 2008 and percutaneous coronary intervention in 12/2018. 2. Hypertension. 3. Dyslipidemia. 4. Ulcerative colitis. 5. History of thyroid cancer. FAMILY HISTORY: Positive for coronary artery disease in the patient's brother and father. ALLERGIES: [place] [address] CONSULTATION Name: ELISE NOVAK Room: [address]#: [id number] Admission: 12/22/19 Attend Phys: Bert Montoya MD Discharge: 12/23/19 Date of : 34 Report #: [id number] CURRENT MEDICATIONS: Aspirin 81 mg daily, Effient 10 mg daily, simvastatin 40 mg at bedtime, Lasix 20 mg daily, Imuran 50 mg daily. SOCIAL HISTORY: The patient is . His is on hospice. He is retired. His daughter lives with him and helps care for his . He denies use of tobacco or alcohol. REVIEW OF SYSTEMS: A 14-point review of systems is positive for the numbness described above. He has history of heart murmur. He has occasional mild ankle edema. He has glasses for poor vision. Otherwise, 14-point review of systems was unremarkable. PHYSICAL EXAMINATION: VITAL SIGNS: Stable. Blood pressure 132/58, pulse is 50 and regular. GENERAL: This is a pleasant elderly gentleman in no distress. Mood and affect appropriate. HEENT: Extraocular muscles intact. Mucous membranes are moist. NECK: Shows no jugular venous distention. There were no carotid bruits. CHEST: Reveals clear lung perze without wheezes, rales or rhonchi. CARDIOVASCULAR: Reveals a regular rhythm with soft grade 1/6 systolic ejection murmur. I do not appreciate gallop. ABDOMEN: Reveals normal bowel sounds. The abdomen is soft, nontender. EXTREMITIES: Shows no edema. Peripheral pulses palpable. SKIN: Warm and dry. LABORATORY DATA: A 12-lead EKG shows sinus rhythm with premature atrial contractions. There were no significant ST or T-wave abnormalities noted. Labs are reviewed. Troponins are normal x 3 sets. IMPRESSION AND RECOMMENDATIONS: 1. Atypical symptoms of left arm numbness, likely due to neurologic issue. The symptoms have resolved. No further treatment at this time. 2. Coronary artery disease, presently appears stable. He is not having unstable symptoms. Continue dual antiplatelet therapy for his recent percutaneous coronary intervention. 3. Dyslipidemia. Continue simvastatin at current dose. Recommend goal LDL of 70 or less. 4. Hypertension. Blood pressure adequately controlled on current cardiac regimen. 5. Ulcerative colitis. The [place] [address] CONSULTATION Name: KISHOREELISE AARON Room: [address]#: [id number] Admission: 12/22/19 Attend Phys: Bert Montoya MD Discharge: 12/23/19 Date of : 34 Report #: [id number] At this point in time, the patient appears stable from a cardiac standpoint for discharge. Keep followup as scheduled. <ELECTRONICALLY SIGNED> By: Marlo Mcarthur MD, FACC 12/25/19 1249 1040 1053[facility] Mcarthur MD, FACC /nt
== END 2019-12-23 11:58 | disposition home or self-care (01) | DRG 392 ==
LOC: M.ERS 18:13 → M.TBA-ER 18:40 → M.2W 19:47
PROVIDERS: Family Medicine; ADMIT Internal Medicine
DX: K21.9 Gastro-esophageal reflux disease without esophagitis (principal); K51.90 Ulcerative colitis, unspecified, without complications; I25.10 Atherosclerotic heart disease of native coronary artery without angina pectoris; F32.9 Major depressive disorder, single episode, unspecified; I10 Essential (primary) hypertension; E78.5 Hyperlipidemia, unspecified; E78.00 Pure hypercholesterolemia, unspecified; Z79.82 Long term (current) use of aspirin; Z79.899 Other long term (current) drug therapy; Z87.891 Personal history of nicotine dependence; Z95.1 Presence of aortocoronary bypass graft; Z95.5 Presence of coronary angioplasty implant and graft; Z85.850 Personal history of malignant neoplasm of thyroid

== ENCOUNTER 2020-01-23 14:31 | Inpatient (IN) | payer MEDICARE, OTHER ==
[~2020-01-23] VITALS: Ht 172.7 cm; Wt 81.8 kg
[2020-01-23 14:33] VITALS: BP 137/117
[2020-01-23 14:49] LABS: HEMATOCRIT 36.7 % (42.0-52.0); HEMOGLOBIN 12.8 gm/dL (14.0-18.0); MCH 33.6 pg (26.0-34.0); MCHC 34.7 g/dL (28.0-37.0); MCV 96.9 fL (80.0-100.0); MPV 8.2 fl. (7.2-11.1); NUCLEATED RBCS 0 /100WBC; PLATELET COUNT* 221 thou/uL (150-400); RBC 3.79 mil/uL (4.50-6.00); RDW-CV 15.7 % (10.5-14.5); WBC 7.5 thou/uL (4.0-11.0)
[2020-01-23 14:59] LABS: APTT 25.9 Seconds (25.0-31.3); CALCIUM 8.2 mg/dL (8.5-10.1); CREATININE 1.5 mg/dL (0.6-1.3); INR 1.1; POTASSIUM 4.6 mmol/L (3.5-5.1); PROTIME 11.3 Seconds (9.20-11.50)
[2020-01-23 15:11] LABS: ALBUMIN 3.5 g/dL (3.4-5.0); CK-MB MASS 2.9 ng/mL (<0.5-3.6); MAGNESIUM 1.9 mg/dL (1.8-2.4); TOTAL BILIRUBIN 1.2 mg/dL (<0.1-1.0); TOTAL PROTEIN 6.2 g/dL (6.4-8.2)
[2020-01-23 15:33] LABS: ABSOLUTE LYMPHOCYTES 0.4 thou/uL (0.8-5.3); ABSOLUTE MONOCYTES 0.1 thou/uL (0.0-1.2); ABSOLUTE NEUTROPHILS 7.1 thou/uL (1.6-8.1)
[2020-01-23 15:34] LABS: ANISOCYTOSIS Occasional; PLATELET ESTIMATE ADEQUATE
[2020-01-23 17:30] VITALS: BP 103/37
[2020-01-23 18:08] VITALS: BP 108/60
[2020-01-23 20:34] VITALS: BP 106/58
[2020-01-24 00:14] VITALS: BP 119/56
[2020-01-24 04:16] LABS: ABSOLUTE LYMPHOCYTES 0.3 thou/uL (0.8-5.3); ABSOLUTE MONOCYTES 0.4 thou/uL (0.0-1.2); ABSOLUTE NEUTROPHILS 9.6 thou/uL (1.6-8.1); BASOPHILS 0.2 %; EOSINOPHILS 0.3 %; HEMATOCRIT 33.8 % (42.0-52.0); HEMOGLOBIN 11.9 gm/dL (14.0-18.0); LYMPHOCYTES 3.3 %; MCHC 35.1 g/dL (28.0-37.0); MCV 96.8 fL (80.0-100.0); MONOCYTES 4.2 %; MPV 8.1 fl. (7.2-11.1); NUCLEATED RBCS 0 /100WBC; PLATELET COUNT* 168 thou/uL (150-400); RBC 3.49 mil/uL (4.50-6.00); RDW-CV 15.8 % (10.5-14.5); WBC 10.4 thou/uL (4.0-11.0)
[2020-01-24 04:26] VITALS: BP 115/48
[2020-01-24 04:51] LABS: ALBUMIN 2.9 g/dL (3.4-5.0); CREATININE 1.1 mg/dL (0.6-1.3); TOTAL BILIRUBIN 1.1 mg/dL (<0.1-1.0); TOTAL PROTEIN 5.5 g/dL (6.4-8.2)
[2020-01-24] MEDS ORDERED: LEVOXYL125 MCG PO (05:26)
[2020-01-24 08:00] VITALS: BP 109/48
--- NOTE | 2020-01-24 08:29 | EKG ---
[place] [address] ELECTROCARDIOGRAM REPORT Name: ELISE NOVAK Room: [address] ADM IN M.R.#: [id number] Admission: 01/23/20 Attend Phys: Bert Montoya, Discharge: Date of : 34 Date of Service: 01/23/20 1433 Report #: [id number] THIS REPORT FOR: //name// [facility] ED Test Date: 2020-01-23 Test Time: 14:33:15 Pat Name: ELISE NOVAK Department: Room: [facility] Gender: M Director Of Instruction: : 1935 Requested By: Erasto Sewell Order Number: [id number] MD: Marlo Mcarthur Measurements Intervals [place] Rate: 72 P: -64 [place]: 145 QRS: 47 QRSD: 104 T: 19 QT: 402 QTc: 440 Interpretive Statements Sinus rhythm Nonspecific T abnormalities, inferior leads Compared to ECG 12/22/2019 18:16:41 T-wave abnormality now present Atrial premature complex(es) no longer present Electronically Signed On 01-24-2020 8:27:29 CDT by Marlo Mcarthur [email or web address] <ELECTRONICALLY SIGNED> By: Marlo Mcarthur MD, FAC 01/24/20 0827 1433 1433 Marlo Mcarthur MD, FAC /EPI
[2020-01-24 12:00] VITALS: BP 108/55
--- NOTE | 2020-01-24 13:04 | 2DMMODE ---
[place] [address] 2 D/M-MODE ECHOCARDIOGRAM Name: NOVAKELISE AARON Room: [address] IN .R.#: [id number] Admission: 01/23/20 Attend Phys: Bert Montoya, Discharge: Date of : 33 Date of Service: 01/24/20 1302 Report #: [id number] THIS REPORT FOR: cc: Nick Skinner,Nick Fitzpatrick,Dickson Clarke MD [facility] ~ APPROVED REPORT Study performed: 01/24/2020 10:42:20 EXAM: Comprehensive 2D, Doppler, and color-flow Echocardiogram Patient Location: In-Patient Room #: [facility] Status: routine BSA: 1.95 HR: 73 bpm BP: 109/48 mmHg Rhythm: NSR Other Information Study Quality: Good Indications CAD 2D Dimensions IVSd: 11.25 (7-11mm) LVOT Diam: 19.93 (18-24mm) LVDd: 47.38 mm PWd: 9.83 (7-11mm) Ascending Ao: 27.68 (22-36mm) LVDs: 26.16 (25-40mm) Aortic Root: 31.92 mm Volumes Left Atrial Volume (Systole) LA ESV Index: 39.40 mL/m2 Aortic Valve AoV Peak Matt.: 1.51 m/s AO Peak Gr.: 9.11 mmHg LVOT Max P.32 mmHg AO Mean Gr.: 5.01 mmHg LVOT Mean P.64 mmHg LVOT Max V: 0.91 m/s AO V2 VTI: 29.62 cm LVOT Mean V: 0.59 m/s MICHELL (VTI): 2.16 cm2 LVOT V1 VTI: 20.55 [place] [address] 2 D/M-MODE ECHOCARDIOGRAM Name: ELISE NOVAK Room: [address] IN [facility]#: [id number] Admission: 01/23/20 Attend Phys: Bert Montoya, Discharge: Date of : 34 Date of Service: 01/24/20 1302 Report #: [id number] Mitral Valve E/A Ratio: 1.25 MV Decel. Time: 184.40 ms MV E Max Matt.: 0.89 m/s MV PHT: 53.48 ms MVA (PHT): 4.11 cm2 TDI E/Lateral E': 6.36 E/Medial E': 9.89 Medial E' Matt.: 0.09 m/s Lateral E' Matt.: 0.14 m/s Pulmonary Valve PV Peak Matt.: 0.90 m/s PV Peak Gr.: 3.27 mmHg Tricuspid Valve RAP Estimate: 5.00 mmHg TR Peak Gr.: 29.01 mmHg RVSP: 34.00 mmHg PA Pressure: 34.00 mmHg Left Ventricle The left ventricle is normal size. There is normal LV segmental wall motion. There is normal left ventricular wall thickness. Left ventricular systolic function is normal. The left ventricular ejection fraction is within the normal range. LVEF is 55-60%. The left ventricular diastolic function is normal. Right Ventricle The right ventricle is normal size. The right ventricular systolic function is normal. Atria Left atrium is mildly dilated. Right atrium is mildly dilated. Aortic Valve Mild aortic valve sclerosis. No aortic regurgitation is present. There is no aortic valvular stenosis. Mitral Valve The mitral valve is normal in structure. Mild mitral regurgitation. No evidence of mitral valve stenosis. Tricuspid Valve The tricuspid valve is normal in structure. Mild tricuspid regurgitation. estimated pa pressure 35 [place] [address] 2 D/M-MODE ECHOCARDIOGRAM Name: ELISE NOVAK Room: [address] IN [facility]#: [id number] Admission: 01/23/20 Attend Phys: Bert Montoya, Discharge: Date of : 33 Date of Service: 01/24/20 1302 Report #: [id number] Pulmonic Valve The pulmonary valve is normal in structure. Trace pulmonic regurgitation. Great Vessels The aortic root is normal in size. IVC is not well visualized. Pericardium There is no pericardial effusion. <Conclusion> LVEF is 55-60%. Left atrium is mildly dilated. Mild mitral regurgitation. Mild tricuspid regurgitation. estimated pa pressure 35 mm Hg <ELECTRONICALLY SIGNED> By: Dickson Singh MD, [facility] 01/24/20 1302 1302 1302 Dickson Singh MD, FAC /INF
[2020-01-24 20:00] VITALS: BP 127/60
[2020-01-25] VITALS: BP 127/72
[2020-01-25 04:00] VITALS: BP 112/56
[2020-01-25 05:35] LABS: ABSOLUTE EOSINOPHILS 0.1 thou/uL (0.0-0.7); ABSOLUTE LYMPHOCYTES 0.5 thou/uL (0.8-5.3); ABSOLUTE MONOCYTES 0.5 thou/uL (0.0-1.2); ABSOLUTE NEUTROPHILS 5.1 thou/uL (1.6-8.1); BASOPHILS 0.4 %; EOSINOPHILS 2.1 %; HEMATOCRIT 31.1 % (42.0-52.0); HEMOGLOBIN 10.9 gm/dL (14.0-18.0); LYMPHOCYTES 8.3 %; MCH 34.1 pg (26.0-34.0); MCHC 34.9 g/dL (28.0-37.0); MCV 97.7 fL (80.0-100.0); MONOCYTES 7.9 %; MPV 8.5 fl. (7.2-11.1); NUCLEATED RBCS 0 /100WBC; PLATELET COUNT* 140 thou/uL (150-400); POLYS 81.3 %; RBC 3.19 mil/uL (4.50-6.00); RDW-CV 16.1 % (10.5-14.5); WBC 6.3 thou/uL (4.0-11.0)
[2020-01-25 05:50] LABS: ALBUMIN 2.5 g/dL (3.4-5.0); CALCIUM 7.3 mg/dL (8.5-10.1); CREATININE 1.1 mg/dL (0.6-1.3); POTASSIUM 3.7 mmol/L (3.5-5.1); TOTAL BILIRUBIN 0.6 mg/dL (<0.1-1.0); TOTAL PROTEIN 5.1 g/dL (6.4-8.2)
[2020-01-25 08:00] VITALS: BP 126/63
--- NOTE | 2020-01-25 08:19 | CON ---
[address] [address] CONSULTATION Name: ELISE NOVAK Room: [address] IN .R.#: [id number] Admission: 01/23/20 Attend Phys: Bert Montoya MD Discharge: Date of : 34 Report #: [id number] THIS REPORT FOR: //name// cc: Nick Skinner John E. DO ~ THIS REPORT FOR: //name// CC: Bert Skinner DATE OF SERVICE: 01/24/2020 HISTORY OF PRESENT ILLNESS: This is a pleasant 84-year-old gentleman who is presenting for evaluation of abdominal pain. The patient reports abdominal pain located in the epigastric region. It began yesterday, abrupt in onset. The pain was localized, radiating downwards. Associated nausea, no vomiting. The patient reports improvement in pain over the course of hospitalization and reports feeling hungry yesterday morning. He denies similar episodes in the past. PAST MEDICAL HISTORY: Significant for coronary artery bypass, hypertension, hyperlipidemia, ulcerative colitis. PAST SURGICAL HISTORY: Left carotid endarterectomy, back surgery, coronary artery bypass. SOCIAL HISTORY: The patient denies smoking, alcohol or recreational drug use. FAMILY HISTORY: Reviewed and not relevant. REVIEW OF SYSTEMS: A comprehensive 10-point review of systems is negative except for what was mentioned in the HPI. PHYSICAL EXAMINATION: VITAL SIGNS: Temperature 36.5, pulse rate 71, respirations 17, blood pressure 108/55, pulse ox 97% on room air. GENERAL: The patient is alert, awake, oriented x 3. HEENT: Pupils are equal, round, reactive to light and accommodation. Mucous membranes are moist. There is no congestion. LUNGS: Clear to auscultation bilaterally. CARDIOVASCULAR: Rate and rhythm regular, S1, S2 present. ABDOMEN: Soft. There is no distention, guarding or rigidity. EXTREMITIES: Warm, well perfused. There is no edema. SKIN: Warm and dry. LABORATORY DATA: Hemoglobin 11.9, hematocrit 33.8, platelet count 168, [place] [address] CONSULTATION Name: ELISE NOVAK AARON Room: [address] IN [facility]#: [id number] Admission: 01/23/20 Attend Phys: Bert Montoya MD Discharge: Date of : 34 Report #: [id number] count 10.4. Sodium 143, potassium 4.0, chloride 104, bicarbonate 32, BUN 28, creatinine 1.1. Lipase 25,085 on presentation. IMAGING: Acute pancreatitis, prominent peripancreatic edema without other complicating features, mild gallbladder distention without intra or extrahepatic biliary ductal dilation. ASSESSMENT AND PLAN: A pleasant 84-year-old gentleman with acute pancreatitis, who is presenting for evaluation. The patient's liver enzymes are slightly rising up. If his liver enzymes continue to trend up tomorrow, we can consider getting an MRCP to rule out common bile duct stone. I would recommend advancing diet as tolerated. There are no local complications at this time. Therefore, I would recommend getting an EUS in 4 weeks to scan the pancreas. Thank you for this consultation. <ELECTRONICALLY SIGNED> By: Jarred Boucher MD 01/25/20 0819 1255 [id number] Boucher MD /nt
[2020-01-25 12:43] VITALS: BP 124/70
--- NOTE | 2020-01-25 14:34 | EKG ---
[place] [address] ELECTROCARDIOGRAM REPORT Name: ELISE NOVAK Room: [address] ADM IN M.R.#: [id number] Admission: 01/23/20 Attend Phys: Bert Montoya, Discharge: Date of : 33 Date of Service: 01/25/20 0925 Report #: [id number] THIS REPORT FOR: //name// [facility] Test Date: 2020-01-25 Test Time: 09:25:25 Pat Name: ELISE NOVAK Department: Room: [address] Gender: M Leasing Specialist: : 1935 Requested By: Ediila Mackey Order Number: [id number] Jessica MD: Dickson Singh Measurements Intervals [place] Rate: 73 P: -49 [place]: 214 QRS: 8 QRSD: 103 T: 7 QT: 421 QTc: 464 Interpretive Statements Sinus or ectopic atrial rhythm Borderline prolonged [place] interval Low voltage, precordial leads Compared to ECG 01/23/2020 14:33:15 Low QRS voltage now present Electronically Signed On 01-25-2020 14:32:29 CDT by Dickson Singh [email or web address] <ELECTRONICALLY SIGNED> By: Dickson Singh MD, [facility] 01/25/20 1432 0925 Dickson Singh MD, [facility] /EPI
[2020-01-25 16:18] VITALS: BP 135/76
[2020-01-25 20:00] VITALS: BP 95/46
[2020-01-26] VITALS: BP 98/50
[2020-01-26 04:00] VITALS: BP 117/49
[2020-01-26 04:51] LABS: ABSOLUTE EOSINOPHILS 0.1 thou/uL (0.0-0.7); ABSOLUTE LYMPHOCYTES 0.5 thou/uL (0.8-5.3); ABSOLUTE MONOCYTES 0.4 thou/uL (0.0-1.2); ABSOLUTE NEUTROPHILS 4.1 thou/uL (1.6-8.1); BASOPHILS 0.4 %; EOSINOPHILS 2.8 %; HEMATOCRIT 32.2 % (42.0-52.0); HEMOGLOBIN 11.3 gm/dL (14.0-18.0); MCH 34.3 pg (26.0-34.0); MCHC 35.1 g/dL (28.0-37.0); MCV 97.7 fL (80.0-100.0); MPV 8.9 fl. (7.2-11.1); NUCLEATED RBCS 0 /100WBC; PLATELET COUNT* 159 thou/uL (150-400); POLYS 78.8 %; RDW-CV 15.7 % (10.5-14.5); WBC 5.2 thou/uL (4.0-11.0)
[2020-01-26 05:16] LABS: PREALBUMIN 15.7 mg/dL (18.0-35.7)
[2020-01-26 05:20] LABS: ALBUMIN 2.5 g/dL (3.4-5.0); CALCIUM 7.2 mg/dL (8.5-10.1); POTASSIUM 3.6 mmol/L (3.5-5.1); TOTAL BILIRUBIN 0.6 mg/dL (<0.1-1.0); TOTAL PROTEIN 5.3 g/dL (6.4-8.2)
[2020-01-26 08:00] VITALS: BP 105/52
[2020-01-26 09:42] VITALS: BP 105/52
== END 2020-01-26 11:00 | disposition home or self-care (01) | DRG 438 ==
LOC: M.ERS 14:31 → M.2W 15:20 → M.TBA-ER 15:20 → M.2W 17:41
PROVIDERS: Family Medicine; ADMIT Internal Medicine
DX: K85.90 Acute pancreatitis without necrosis or infection, unspecified (principal); N17.0 Acute kidney failure with tubular necrosis; K51.90 Ulcerative colitis, unspecified, without complications; I25.10 Atherosclerotic heart disease of native coronary artery without angina pectoris; F32.9 Major depressive disorder, single episode, unspecified; E78.00 Pure hypercholesterolemia, unspecified; K21.9 Gastro-esophageal reflux disease without esophagitis; I10 Essential (primary) hypertension; E78.5 Hyperlipidemia, unspecified; I65.29 Occlusion and stenosis of unspecified carotid artery; E03.9 Hypothyroidism, unspecified; R55 Syncope and collapse; K22.70 Barrett's esophagus without dysplasia; K81.9 Cholecystitis, unspecified; R00.1 Bradycardia, unspecified; K82.9 Disease of gallbladder, unspecified; Z95.1 Presence of aortocoronary bypass graft; Z98.1 Arthrodesis status; Z90.89 Acquired absence of other organs; Z79.82 Long term (current) use of aspirin; Z79.891 Long term (current) use of opiate analgesic; Z79.899 Other long term (current) drug therapy; Z87.891 Personal history of nicotine dependence; Z95.5 Presence of coronary angioplasty implant and graft

== ENCOUNTER → 2021-05-30 | Outpatient (CLI) | payer MEDICARE, OTHER ==
[~2021-05-30] MED LIST changes: +LEVOXYL125 MCG PO
[2021-05-30 13:32] LABS: ALBUMIN 3.5 g/dL (3.4-5.0); CALCIUM 7.4 mg/dL (8.5-10.1); CREATININE 1.2 mg/dL (0.6-1.3); POTASSIUM 4.2 mmol/L (3.5-5.1); TOTAL BILIRUBIN 0.5 mg/dL (<0.1-1.0); TOTAL PROTEIN 6.2 g/dL (6.4-8.2)
[2021-05-30 14:18] LABS: ESR (SEDRATE) 18 mm/hr (0-20)
[2021-05-30 14:46] LABS: ABSOLUTE EOSINOPHILS 0.1 thou/uL (0.0-0.7); ABSOLUTE LYMPHOCYTES 0.7 thou/uL (0.8-5.3); ABSOLUTE MONOCYTES 0.5 thou/uL (0.0-1.2); BASOPHILS 0.7 %; EOSINOPHILS 1.3 %; HEMATOCRIT 35.7 % (42.0-52.0); LYMPHOCYTES 13.1 %; MCH 31.9 pg (26.0-34.0); MCHC 33.8 g/dL (28.0-37.0); MCV 94.6 fL (80.0-100.0); MONOCYTES 8.8 %; MPV 8.5 fl. (7.2-11.1); NUCLEATED RBCS 0 /100WBC; PLATELET COUNT* 187 thou/uL (150-400); POLYS 76.1 %; RBC 3.77 mil/uL (4.50-6.00); RDW-CV 13.8 % (10.5-14.5); WBC 5.3 thou/uL (4.0-11.0)
== END ==
LOC: M.LAB 12:53
PROVIDERS: ATTEND Internal Medicine Gastroenterology
DX: K51.90 Ulcerative colitis, unspecified, without complications (principal)